=== PATIENT | male | born 1950 | race Two or more races ===

== ENCOUNTER 2018-04-21 16:54 | Emergency (ER) | payer OTHER, MEDICAID ==
[~2018-04-21] VITALS: Ht 170.2 cm; Wt 86.2 kg
--- NOTE | 2018-04-21 17:07 | NUR ---
PT BIBRA FROM THE STREETS TO ER BED 11 C/O RFA PAIN AND SWELLING. UPON INITIAL ASSESSMENT PT NOTED TO HAVE BUE AND BLE, SCROTAL SWELLING. GOWNED AND PLACED ON MONITOR. PT DENIES CHEST PAIN OR SOB. PT IS AAO3. AWAITING MD JAVIER.
--- NOTE | 2018-04-21 17:22 | NUR ---
JARED OIL AND GAS RECRUITER AT BEDSIDE FOR EVAL.
[2018-04-21] MEDS ORDERED: IV NS 0.9% 1,000 ML BAG IV ONE (17:30)
[2018-04-21 17:46] LABS: BASOPHILS % (AUTO) 0.9 % (0.0-2.0); EOSINOPHILS % (AUTO) 3.1 % (0.0-6.0); HEMATOCRIT 45 % (39-51); HEMOGLOBIN 14.3 g/dL (13.5-17.5); LYMPHOCYTES # (AUTO) 0.7 /CMM (0.8-4.8); LYMPHOCYTES % (AUTO) 13.1 % (20.0-44.0); MEAN CORPUSCULAR HGB CONC 32 g/dl (31.0-36.0); MEAN CORPUSCULAR VOLUME 96 fL (80-96); MONOCYTES # (AUTO) 0.5 /CMM (0.1-1.30); NEUTROPHILS # (AUTO) 4.1 /CMM (1.8-8.9); NEUTROPHILS % (AUTO) 73.9 % (43.0-81.0); PLATELET COUNT (AUTO) 176 /CMM (150-450); RED BLOOD CELL COUNT(AUTO) 4.67 MIL/uL (4.5-6.0); WHITE BLOOD COUNT (AUTO) 5.5 K/uL (4.3-11.0)
[2018-04-21 18:17] LABS: INR 1.21 (0.85-1.15); TROPONIN I 0.017 ng/mL (0.00-0.056)
[2018-04-21 18:26] LABS: CALCIUM, SERUM 8.8 mg/dL (8.5-10.1); CREATININE 1.5 mg/dL (0.6-1.3); POTASSIUM 5.2 mmol/L (3.5-5.1)
[2018-04-21 18:32] LABS: ALBUMIN 2.9 g/dL (3.4-5.0); BILIRUBIN,DIRECT 0.4 mg/dL (0.0-0.2); BILIRUBIN,TOTAL 0.6 mg/dL (0.2-1.0); TOTAL PROTEIN, SERUM 6.5 g/dL (6.4-8.2)
[2018-04-21] MEDS ORDERED: NITROGLYCERIN 30 GM TUBE TP STA (19:06)
[2018-04-21] MEDS ORDERED: FUROSEMIDE 40 MG/4 ML VIAL ONE (19:23)
[2018-04-21] MEDS ORDERED: VANCOMYCIN 1 GM VIAL ONE (19:23)
[2018-04-21] MEDS ORDERED: NITROGLYCERIN PACKET 1 GM PACKET ONE (19:24)
[2018-04-21] MEDS ORDERED: ASPIRIN 325 MG TABLET ONE (19:24)
--- NOTE | 2018-04-21 19:24 | NUR ---
RECEIVED REPORT FROM FRANCISCO NOE FOR JOSHUA. PT RESTING IN BED WITH NO S/S OF DISTRESS NOTED. WILL CONTINUE TO MONITOR PT
[2018-04-21] MEDS ORDERED: PERMETHRIN 5% CRM 60 GM TUBE TP ONE (19:30)
[2018-04-21] MEDS ORDERED: FUROSEMIDE 40 MG/4 ML VIAL IV ONE (19:30)
[2018-04-21] MEDS ORDERED: ASPIRIN 325 MG TABLET PO ONE (19:30)
[2018-04-21] MEDS ORDERED: VANCOMYCIN 1 GM in IV D5W 250 ML IV ONE (19:30)
--- NOTE | 2018-04-21 19:46 | NUR ---
CALLED JAXON MIGUEL AND CALLED FOR TO CALL JAXON PT #: [phone]
--- NOTE | 2018-04-21 20:21 | NUR ---
[facility] ACCEPTING PHYSICIAN CORIN CALLAHAN FOR REPORT CALL [phone] ALS TRANSPORT ETA [id number]
--- NOTE | 2018-04-21 20:23 | NUR ---
URINE SAMPLE COLLECTED AND CALLED LAB FOR FILM TESTS CHECKER
--- NOTE | 2018-04-21 20:55 | NUR ---
MADE CALL TO [facility] TO GIVE REPORT, UNABLE TO REACH STAFF RN MANAGER MEMBERS TO GIVE REPORT. CALL WAS NOT ANSWERED. WILL TRY AGAIN AT A LATER TIME
--- NOTE | 2018-04-21 21:00 | NUR ---
EMS FOR TRANSFER BEDSIDE WITH PT
--- NOTE | 2018-04-21 21:01 | NUR ---
MADE CALL TO [facility] ER TO GIVE REPORT, UNABLE TO REACH STAFF TUFTER OPERATOR MEMBERS TO GIVE REPORT. CALL WAS NOT ANSWERED. EMS BEDSIDE FOR REPORT. PATENT ENGINEER AWARE
[2018-04-21 21:04] VITALS: BP 140/85
[2018-04-21 21:09] LABS: APPEARANCE,URINE Clear (CLEAR); BILIRUBIN,URINE Negative (NEGATIVE); BLOOD, URINE Large Ery/uL (NEGATIVE); COLOR,URINE Yellow (YELLOW); KETONES,URINE Negative (NEGATIVE); LEUKOCYTE ESTERASE ,URINE Negative (NEGATIVE); NITRITE, URINE Negative (NEGATIVE); PROTEIN,URINE Negative (NEGATIVE); UGLUCOSE Negative (NEGATIVE); UROBILINOGEN,URINE 0.2 EU/dL (0.2)
--- NOTE | 2018-04-21 21:10 | NUR ---
REPORT GIVEN TO EMS CREW FOR JOSHUA. PT BEING TRANSFERRED [facility] [place]. NO S/S OF DISTRESS NOTED UPON TRANSFER
--- NOTE | 2018-04-21 21:11 | NUR ---
UNABLE TO GIVE REPORT TO [facility] ED FOR JOSHUA. NIGHT MANAGER MADE AWARE
--- NOTE | 2018-04-21 21:11 | NUR ---
Patient Tranfers to outside Facility Physician:CORIN JURADO Location:[facility]
[2018-04-21 21:36] LABS: BACTERIA,URINE Few /HPF (None Seen); RBC,URINE TOO NUMEROUS TO COUN /HPF (0-2); SQUAMOUS EPITHELIAL CELL,UR Few /HPF (None Seen); WBC,URINE 0-2 /HPF (0-3)
== END 2018-04-21 21:17 | disposition short-term general hospital (02) ==
LOC: ER 16:56
DX: R60.1 Generalized edema (principal); N28.9 Disorder of kidney and ureter, unspecified; I50.9 Heart failure, unspecified; B86 Scabies; I31.3 Pericardial effusion (noninflammatory); E86.0 Dehydration; Z59.0 Homelessness
CPT/HCPCS: 36415; 71045; 80048; 80076; 81001; 83605; 83880; 84484; 85025; 85730; 87040 ×2; 87081; 87086; 93005; 96361; 96365; 96375; 99285; J1940; J3370; J7030; 81000-TC; A4606; Z7610